=== PATIENT | female | born 1985 | race Two or more races ===

== ENCOUNTER → 2016-12-12 | Day surgery (SDC) | payer OTHER ==
--- NOTE | 2016-11-08 10:44 | GHP ---
[f rep st] PREOP HISTORY AND PHYSICAL Amended report DATE OF ADMISSION: 12/12/2016 PLANNED PROCEDURE: Cold knife conization of the cervix. PREOPERATIVE DIAGNOSIS: Positive dysplasia on endocervical curettage. INDICATIONS: Patient is a 30-year-old 0 who does have a history of an abnormal Pap smear in 2008 for which she had a LEEP excision procedure. The patient was not completely compliant with her followup Pap smears due to anxiety over having Paps and potential need for additional procedures. She had a Pap smear done in September 2016 which was ASCUS with positive HPV. She underwent a colposcopy on 10/11/2016, which showed that there were acetowhite changes within the LEEP scar and nothing in the outer portion of the cervix. Biopsy of the cervix showed JOAN 1, and endocervical curettage showed JOAN 2. A long discussion was had with the patient and her partner about management options of repeating a LEEP versus indications for cold knife conization and implications on potential future fertility. Patient and her partner both state that they do not plan on having any children and would like to prioritize making sure everything is fine with her cervix over any potential future fertility thoughts and so would like to proceed with a cold knife conization. Risks and benefits have been reviewed with the patient and her partner, and the patient has been properly consented. MEDICAL HISTORY: History of cervical dysplasia, possible endometriosis, anxiety. MEDICATIONS: None. SURGICAL HISTORY: LEEP excision of cervix in 2008. ALLERGIES: Sulfa and iodine. SOCIAL HISTORY: The patient is in a long-term relationship. They have been together 3 years. She denies tobacco use. She does drink 1-4 alcoholic beverages a week and smokes pot 3-6 times a day. 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 FAMILY MEDICAL HISTORY: Noncontributory. 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 Periods are every 6 weeks, lasting 3 days. She is a 0. The patient does have a history of an abnormal Pap smear in 2008 for which she had a LEEP excision of her cervix, and this most recent Pap smear was abnormal, and colposcopy was described above. The patient does have a history of HPV and chlamydia in 2002. The patient is using withdrawal for contraception. REVIEW OF SYSTEMS: 10-point review of systems is negative. PHYSICAL EXAM: VITAL SIGNS: Stable. GENERAL APPEARANCE: Alert and oriented x3. PSYCH: She has appropriate affect. NECK: Mobile and supple. HEART: Rate is regular regular. LUNGS: Clear to auscultation bilaterally. ABDOMEN: Soft, nondistended, nontender. No organomegaly is noted. MUSCULOSKELETAL: Unremarkable. EXTREMITIES: No calf tenderness or edema. PELVIC EXAM: Reveals a mobile, mid position uterus with no adnexal masses. ASSESSMENT AND PLAN: 30-year-old 0 with positive endocervical curettings for JOAN 2. She will undergo a cold knife conization and endocervical curettage for this. We have discussed potential risk of incompetent cervix and labor if she does become in the future, and patient does not plan to have children. She wishes to proceed with a cold knife conization. Risks and benefits of the procedure have been extensively reviewed with the patient, and the patient has been properly consented. /[id number]/MODL Add acc#, 11/12/16, charis PAGE
--- NOTE | 2016-12-10 18:56 | GHP ---
[f rep st] PREOP HISTORY AND PHYSICAL PLANNED PROCEDURE: Cold knife conization and endocervical curettage. INDICATIONS: The patient is a 30-year-old 0 who had a history of abnormal Pap smear in 2000. She had a LEEP excision for JOAN-2. Patient was not great at followup secondary to anxiety over abnormal Pap smears and dislike of having procedures. The patient finally came in for a Pap smear in 07/2016, which was ASCUS with positive HPV. She had a colposcopy performed in our office on 10/11/2016, which showed JOAN-2 on endocervical curettings within the scar of the squamocolumnar junction from the LEEP. Patient presents with her partner. They do not plan on having any children. They are currently using withdrawal for contraception, but would like to talk about more reliable contraception at some point. We have discussed the risk of cold knife conization and LEEP on cervical incompetence if she does plan on having children. The patient has been apprised of risks and benefits of the surgery and wishes to proceed. PAST MEDICAL HISTORY: Cervical dysplasia, suspected endometriosis, anxiety. MEDICATIONS: None. PAST SURGICAL HISTORY: LEEP excision of her cervix. ALLERGIES: Sulfa, iodine, and shellfish. SOCIAL HISTORY: The patient is in a long-term relationship x3 years. She denies tobacco use. She does drink 1-4 alcoholic beverages a week and smokes pot 3-6 times a day. She denies any other drug use. 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 FAMILY MEDICAL HISTORY: Noncontributory. 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 Periods every 6 weeks, lasting 3 days. They are heavy. She is a 0. She does have a history of a LEEP excision. She has a history of HPV and a history of chlamydia. REVIEW OF SYSTEMS: Ten-point review of systems is negative. PHYSICAL EXAM: VITAL SIGNS: Patient's blood pressure is 104/54. Her weight is 138.8. GENERAL APPEARANCE: Alert and oriented x3. PSYCH: She has appropriate affect and is slightly anxious. NECK: Mobile and supple. MUSCULOSKELETAL: Grossly intact. NEURO: Grossly intact. HEART: Rate is regular/regular. LUNGS: Clear to auscultation bilaterally. ABDOMEN: Soft, nondistended, nontender. EXTREMITIES: Reveal no calf tenderness or edema. PELVIC: Exam reveals a mobile and midposition uterus with no adnexal masses. ASSESSMENT/PLAN: A 30-year-old 0 with history of cervical dysplasia on endocervical curettage. The patient will undergo a cold knife conization. Risks and benefits have been extensively reviewed with the patient, and the patient has been consented. /[id number]/MODL MTDD
[~2016-12-12] MED LIST: DEXAMETHASONE 4 MG/ML VIAL ONE; HYDROCODONE/APAP 5/325 TAB ONE; HYDROCODONE/APAP 5/325 TAB PO PRN; LIDOCAINE 1% 2 ML INJ ID PRN; LIDOCAINE 1% 300 MG/30 ML SDV ONE; LR 1,000 ML IV ONE; LR 500 ML IV PRN; MIDAZOLAM 2 MG/2 ML VIAL IVP ONE; MONSELS-FERRIC SUBSULFATE 8 GM SDV TP ONE; NALOXONE HCL 0.4 MG/ML INJ IVP PRN; ONDANSETRON 4 MG/2 ML VIAL IVP PRN; ONDANSETRON 4 MG/2 ML VIAL ONE; PROPOFOL/EMULSION 500 MG/50 ML BOTTLE IV ONE; SILVER NITRATE APPLICATOR 1 APPL TP ONE; VASOPRESSIN 20 UNIT/ML VIAL ONE; fentaNYL 100 MCG/2 ML INJ IVP PRN; fentaNYL 100 MCG/2 ML INJ ONE
[2016-12-12 07:14] VITALS: PULSE 71
--- NOTE | 2016-12-12 07:19 | PDANEPAE ---
ANE History of Present Illness 30 year old female for conization of cervix. ANE Past Medical History - Cardiovascular History Hx Hypertension: No Hx Arrhythmias: No Hx Chest Pain: No Hx Coronary Artery / Peripheral Vascular Disease: No Hx CHF / Valvular Disease: No Hx Palpitations: No - Pulmonary History Hx COPD: No Hx Asthma/Reactive Airway Disease: Yes Hx Recent Upper Respiratory Infection: No Hx Oxygen in Use at Home: No Hx Sleep Apnea: No Sleep Apnea Screening Result - Last Documented: Negative Pulmonary History Comment: mild asthma- not very frequent anymore - Neurologic History Hx Cerebrovascular Accident: No Hx Seizures: No Hx Dementia: No - Endocrine History Hx Diabetes: No Hypothyroid: No Hyperthyroid: No Obesity: no - Renal History Hx Renal Disorders: No - Liver History Hx Hepatic Disorders: No - Neurological & Psychiatric Hx Hx Neurological and Psychiatric Disorders: Yes Neurological / Psychiatric History Comment: anxiety. depression - Cancer History Hx Cancer: No - Congenital Disorder History Hx Congenital Disorders: No - GI History GERD: no Hx Gastrointestinal Disorders: No - Other Health History Other Health History: wears glasses - Chronic Pain History Chronic Pain: No - Surgical History Prior Surgeries: right wrist surgery 11/29/16. leap procedure 06/2008 ANE Review of Systems Review of systems is: negative Review of Systems: - Exercise capacity Exercise capacity: >=4 METS METS (RN): 4 METS ANE Patient History - Allergies Allergies/Adverse Reactions: iodine Allergy (Verified 11/23/16 15:50) Dyspnea Sulfa (Sulfonamide Antibiotics) Allergy (Verified 11/23/16 15:49) Dyspnea - Home Medications Home medications: home medication list seen and reviewed Home Medications: NK [No Known Home Meds] 11/23/16 [Last Taken Unknown] - NPO status NPO Status: no food or drink >8 hours NPO Since - Liquids (Date): 12/11/16 NPO Since - Liquids (Time): 23:00 NPO Since - Solids (Date): 12/11/16 NPO Since - Solids (Time): 20:00 - Anes Hx Anes Hx: post operative nausea - Smoking Hx Smoking Status: Never smoked Marijuana use: Yes - Alcohol Use Alcohol Use: Occasionally - Family Anes Hx Family Anes Hx: neg - N/A Family Hx Anesthesia Complications: none ANE Labs/Vital Signs - Vital Signs Vital Signs: reviewed preoperatively; see RN documention for details Blood Pressure: 103/84 Heart Rate: 71 Respiratory Rate: 16 O2 Sat (%): 97 Height: 160.02 cm Weight: 61.235 kg ANE Physical Exam - Airway Neck exam: FROM Mallampati Score: Class 2 Mouth exam: normal dental/mouth exam - Pulmonary Pulmonary: no respiratory distress - Cardiovascular Cardiovascular: regular rate and rhythym - ASA Status ASA Status: II ANE Anesthesia Plan Anesthesia Plan: GA with mask Total IV Anesthesia: Yes
--- NOTE | 2016-12-12 07:25 | PDHPUP ---
History & Physical Update H&P update statement: This history and physical update is based on an assessment of the patient which was completed after admission or registration (within 24 hours), but prior to the surgery/procedure. H&P update: H&P reviewed & patient examined, no change in patient's condition since H&P completed
[2016-12-12 08:50] VITALS: TEMP 97
[2016-12-12 10:42] VITALS: BP 116/80; RESP 14; O2SAT 94
--- NOTE | 2016-12-12 18:35 | POSTANESTH ---
Post Anesthetic Evaluation Cardiovascular Status: Normal, Stable, Similar to Pre-Op Cond Respiratory Status: Normal, Stable, Similar to Pre-op Cond. Level of Consciousness/Mental Status: Can Participate in Eval Pain Control: Adequate, Prn Tx Ordered Nausea/Vomiting Control: Adequate, Prn Tx Ordered Complications Possibly Related to Anesthesia: None Noted
--- NOTE | 2016-12-12 20:14 | GOP ---
[f rep st] OPERATIVE REPORT DATE OF OPERATION: 12/12/2016 SURGEON: Selam Cruz DO ANESTHESIA: General anesthesia with an LMA. ANESTHESIOLOGIST: Dr. Ernst. PREOPERATIVE DIAGNOSIS: Positive endocervical curettage. POSTOPERATIVE DIAGNOSIS: Positive endocervical curettage. PROCEDURE PERFORMED: Cold knife conization and endocervical curettage. FINDINGS: Exam under anesthesia: Mobile midposition uterus with no adnexal masses. SPECIMENS: Cone specimen of cervix in multiple pieces, and endocervical curettage. ESTIMATED BLOOD LOSS: 50 cc. INDICATIONS: Patient is a 30-year-old 0, who has a history of a LEEP in 2008. She did not have a followup Pap smear for many years following that. Her most recent Pap was ASCUS plus HPV. She had a colposcopy which showed JOAN 2 in the endocervical curettings and had acetowhite changes in the LEEP scar. Management options were reviewed with the patient and decision was made to proceed with a cold knife conization of the cervix. Risks and benefits of the procedure were reviewed with the patient, and the patient was properly consented. DESCRIPTION OF PROCEDURE: Patient was taken to the operating room with intravenous fluids in place. She was then placed on the operating room table in the dorsal supine position where general anesthesia was obtained. She was then repositioned into the dorsal lithotomy position with the Yellofin stirrups and prepped and draped in the normal sterile fashion with Hibiclens due to patient's iodine allergy. A speculum was then placed in the patient's vagina. The uterus was noted to be well suspended. The anterior lip of the cervix was grasped with a single-tooth tenaculum and then an 0 Vicryl suture was used to create stay sutures from the 2 o'clock to 4 o'clock position, and from the 8 o'clock to 10 o'clock position. This allowed for manipulation and visualization of the cervix. The usual angled knife was not available and so a straight knife was used to perform the conization. Because of this, it was not in a complete cone specimen, but the endocervical portion of the cervix was excised. The specimen was handed off. An endocervical curettage with a working curette and a Cytobrush was performed and that specimen was also handed off. Cauterization with Bovie and Monsel solution were applied. The stay sutures were trimmed. Instruments were then removed from the patient's vagina. The patient was returned to the dorsal supine position where she was easily awoken from anesthesia. Sponge count was correct. The patient was transferred to the recovery room in stable condition. /[id number]/MODL MTDD
== END | disposition home or self-care (01) ==
LOC: FSGY 06:08
PROVIDERS: ATTEND Obstetrics & Gynecology
PROC: 0UBC7ZZ Excision of Cervix, Via Natural or Artificial Opening (ICD-10-PCS; principal; 2016-12-12 07:15)
DX: N87.0 Mild cervical dysplasia (principal); N80.0 Endometriosis of uterus; J45.909 Unspecified asthma, uncomplicated; F41.9 Anxiety disorder, unspecified; F12.90 Cannabis use, unspecified, uncomplicated; Z88.2 Allergy status to sulfonamides
CPT/HCPCS: J1100; J2250; J2405; J2704; J3010